=== PATIENT | male | born 1955 | race Caucasian/White ===

== ENCOUNTER 2016-12-23 12:56 | Outpatient (CLI) | payer MEDICAID | END 2016-12-23 12:57 | disposition home or self-care (01) | DX: B18.2 Chronic viral hepatitis C (principal) ==

== ENCOUNTER 2016-12-25 09:09 | Outpatient (CLI) | payer MEDICAID | END 2016-12-25 09:10 | disposition home or self-care (01) | DX: I10 Essential (primary) hypertension (principal) ==

== ENCOUNTER 2017-05-26 07:22 | Outpatient (CLI) | payer MEDICAID | END 2017-05-26 07:23 | disposition home or self-care (01) | LOC: LAB.F 07:22 | PROVIDERS: ATTEND Nurse Practitioner Family | DX: I10 Essential (primary) hypertension (principal) ==

== ENCOUNTER 2017-06-10 08:47 | Outpatient (CLI) | payer MEDICAID ==
[2017-06-10 19:25] LABS: CHOL/HDL RATIO 4.1 (<5.0); CHOLESTEROL 140 mg/dL; HDL CHOLESTEROL 34 mg/dL; LDL/HDL RATIO 2.6 (<3.6); TRIGLYCERIDES 89 mg/dL; VLDL CHOLESTEROL 18 mg/dL
[2017-06-10 19:34] LABS: BASOPHILS % (AUTO) 0.5 %; EOSINOPHILS # (AUTO) 0.2 10^3/uL (0.0-0.7); HCT - HEMATOCRIT 44.9 % (42.0-52.0); LYMPHOCYTES # (AUTO) 2.8 10^3/uL (1.5-3.5); LYMPHOCYTES % (AUTO) 46.9 %; MEAN CORPUSCULAR HEMOGLOBIN 30.7 pg (27.0-31.0); MEAN CORPUSCULAR HGB CONC 33.5 g/dL (32.0-36.0); MEAN CORPUSCULAR VOLUME 91.7 fL (80.0-94.0); MEAN PLATELET VOLUME 8.4 fL (7.4-11.4); MONOCYTES # (AUTO) 0.6 10^3/uL (0.0-1.0); MONOCYTES % (AUTO) 10.2 %; NEUTROPHILS # (AUTO) 2.3 10^3/uL (1.5-6.6); NEUTROPHILS % (AUTO) 38.4 %; NUCLEATED RED BLOOD CELLS AUTO 0.1 /100WBC; RED BLOOD COUNT 4.89 10^6/uL (4.70-6.10); RED CELL DISTRIBUTION WIDTH 13.6 % (12.0-15.0)
== END 2017-06-10 08:48 | disposition home or self-care (01) ==
LOC: LAB.F 08:47
PROVIDERS: ATTEND Nurse Practitioner Family
DX: I10 Essential (primary) hypertension (principal)
CPT/HCPCS: 36415; 80061; 84443; 85025; 86317; 86694; 86695; 86696; 86704; 86709; 86780; 86803; 87340; 87389; 87491; 87522; 87591

== ENCOUNTER 2017-06-13 13:15 | Outpatient (CLI) | payer MEDICAID ==
[2017-06-13 18:18] LABS: BILIRUBIN,TOTAL 0.3 mg/dL (0.2-1.0); CALCIUM 9.4 mg/dL (8.5-10.3); CREATININE 0.7 mg/dL (0.6-1.2); POTASSIUM 4.2 mmol/L (3.5-5.0); TOTAL PROTEIN 7.9 g/dL (6.7-8.2)
== END 2017-06-13 13:16 | disposition home or self-care (01) ==
LOC: LAB.F 13:15
PROVIDERS: ATTEND Nurse Practitioner Family
DX: I10 Essential (primary) hypertension (principal)
CPT/HCPCS: 36415; 80053

== ENCOUNTER 2017-09-15 13:30 | Outpatient (CLI) | payer MEDICAID ==
[2017-09-15 19:27] LABS: BILIRUBIN,TOTAL 0.4 mg/dL (0.2-1.0); CREATININE 0.9 mg/dL (0.6-1.2); POTASSIUM 3.5 mmol/L (3.5-5.0); TOTAL PROTEIN 7.4 g/dL (6.7-8.2)
[2017-09-18 18:01] LABS: TEST RESULT REPORT
== END 2017-09-15 13:31 | disposition home or self-care (01) ==
LOC: LAB.WCP 13:30
PROVIDERS: ATTEND Internal Medicine Gastroenterology
DX: B18.2 Chronic viral hepatitis C (principal)
CPT/HCPCS: 36415; 80053; 81599; 87521

== ENCOUNTER 2017-09-16 11:22 | Outpatient (CLI) | payer MEDICAID ==
[2017-09-16 19:07] LABS: HIVRAP NEG QC NEGATIVE (Negative); HIVRAP POS QC POSITIVE (Positive)
== END 2017-09-16 11:23 | disposition home or self-care (01) ==
LOC: LAB.F 11:22
PROVIDERS: ATTEND Internal Medicine
DX: Z76.89 Persons encountering health services in other specified circumstances (principal)
CPT/HCPCS: 36415; 86803; 87340; 87389

== ENCOUNTER 2017-10-13 10:00 | Outpatient (CLI) | payer MEDICAID ==
[2017-10-13 12:32] LABS: BASOPHILS % (AUTO) 0.6 %; EOSINOPHILS # (AUTO) 0.2 10^3/uL (0.0-0.7); EOSINOPHILS % (AUTO) 2.6 %; HCT - HEMATOCRIT 43.3 % (42.0-52.0); HGB - HEMOGLOBIN 14.7 g/dL (14.0-18.0); LYMPHOCYTES # (AUTO) 2.3 10^3/uL (1.5-3.5); MEAN CORPUSCULAR HEMOGLOBIN 30.8 pg (27.0-31.0); MEAN CORPUSCULAR HGB CONC 33.9 g/dL (32.0-36.0); MEAN CORPUSCULAR VOLUME 90.8 fL (80.0-94.0); MEAN PLATELET VOLUME 7.8 fL (7.4-11.4); MONOCYTES # (AUTO) 0.8 10^3/uL (0.0-1.0); MONOCYTES % (AUTO) 11.7 %; NEUTROPHILS # (AUTO) 3.2 10^3/uL (1.5-6.6); NEUTROPHILS % (AUTO) 50.1 %; NUCLEATED RED BLOOD CELLS AUTO 0.1 /100WBC; RED BLOOD COUNT 4.77 10^6/uL (4.70-6.10); RED CELL DISTRIBUTION WIDTH 13.6 % (12.0-15.0); UNCORRECTED WHITE BLOOD COUNT 6.5 x10^3/uL; WHITE BLOOD COUNT 6.5 x10^3/uL (4.8-10.8)
[2017-10-13 12:52] LABS: BILIRUBIN,TOTAL 0.7 mg/dL (0.2-1.0); CALCIUM 9.2 mg/dL (8.5-10.3); CREATININE 0.6 mg/dL (0.6-1.2); TOTAL PROTEIN 7.5 g/dL (6.7-8.2)
== END 2017-10-13 10:01 | disposition home or self-care (01) ==
LOC: LAB.WCP 10:00
PROVIDERS: ATTEND Internal Medicine Gastroenterology
DX: B18.2 Chronic viral hepatitis C (principal)
CPT/HCPCS: 36415; 80053; 85025; 86803

== ENCOUNTER 2018-05-05 05:28 | Emergency (ER) | payer MEDICAID, MEDICARE ==
--- NOTE | 2018-05-05 05:52 | ED Physician Documentation ---
History of Present Illness - Stated complaint Stated Complaint: HIGH BLOOD PRESSURE - Chief complaint Chief Complaint: Neuro - History obtained from History obtained from: Patient, Family - History of Present Illness Timing: Enter time (04:00), Today Improved by: no ameliorating factors Worsened by: no exacerbating factors - Additonal information Additional information: awoke 4 AM this morning with irregular palpitations, diaphoresis, nausea. He measured his blood pressure several times in succession, with high readings ( highest was 170s/100s). recently diagnosed with TIA at [place] last week. Started on Losartan last night (saw PMD yesterday, took first dose last night) Review of Systems Constitutional: reports: Sweats. denies: Fever Cardiac: reports: Chest pain / pressure (tightness), Palpitations. denies: Pedal edema Respiratory: denies: Dyspnea, Cough GI: reports: Nausea. denies: Abdominal Pain, Vomiting Musculoskeletal: denies: Back pain Neurologic: denies: Generalized weakness, Focal weakness, Numbness, Headache PD PAST MEDICAL HISTORY - Past Medical History Past Medical History: Yes Cardiovascular: Hypertension, High cholesterol Respiratory: None Neuro: None Endocrine/Autoimmune: None GI: None : None HEENT: None Psych: Anxiety Musculoskeletal: None Derm: None - Past Surgical History Past Surgical History: Yes HEENT: Tonsil/Adenoidectomy - Present Medications Home Medications: Ambulatory Orders Medication Instructions Recorded Confirmed Aspirin [Adult Aspirin] 81 mg PO DAILY 05/05/18 05/05/18 Losartan Potassium 100 mg PO DAILY 05/05/18 05/05/18 - Allergies Allergies/Adverse Reactions: Allergies Allergy/AdvReac Type Severity Reaction Status Date / Time No Known Drug Allergies Allergy Verified 05/05/18 05:38 - Social History Does the pt smoke?: Yes Smoking Status: Light tobacco smoker Does the pt drink ETOH?: Yes Does the pt have substance abuse?: Yes Substance Use and Type: Marijuana - Immunizations Immunizations are current?: Yes - POLST Patient has POLST: No PD ED PE NORMAL - Vitals Vital signs reviewed: Yes - General General: Alert and oriented X 3, No acute distress, Well developed/nourished - HEENT HEENT: Moist mucous membranes - Neck Neck: Supple, no meningeal sign - Cardiac Cardiac: RRR, No murmur, Other (occasional extra beats) - Respiratory Respiratory: No respiratory distress, Clear bilaterally - Abdomen Abdomen: Soft, Non tender - Derm Derm: Normal color, Warm and dry - Extremities Extremities: No edema Results - Vitals Vitals: Vital Signs - 24 hr 05/05/18 05/05/18 05/05/18 05:34 05:48 06:00 Temperature 36.4 C L Heart Rate 97 65 67 Respiratory 16 16 19 Rate Blood Pressure 159/81 H O2 Saturation 97 05/05/18 05/05/18 05/05/18 06:01 06:17 06:20 Temperature Heart Rate 71 65 Respiratory 18 18 18 Rate Blood Pressure 140/85 H O2 Saturation 98 96 05/05/18 05/05/18 05/05/18 06:21 06:37 07:35 Temperature Heart Rate 62 67 Respiratory 18 18 Rate Blood Pressure 147/91 H 140/73 H 142/84 H O2 Saturation 98 96 Oxygen O2 Source Room air - EKG (time done) No standard instances Rate: Rate (enter#) (69) Rhythm: NSR [place]: LAD, Anterior hemiblock Intervals: Normal DC QRS: Normal Ischemia: Normal ST segments Other comments: Other comments (PACs) - Labs Labs: Laboratory Tests 05/05/18 05/05/18 05/05/18 05:43 05:43 05:43 WBC 8.3 RBC 4.86 Hgb 15.1 Hct 44.7 MCV 92.1 MCH 31.0 MCHC 33.7 RDW 12.9 Plt Count 201 MPV 7.7 Neut # (Auto) 3.9 Lymph # (Auto) 3.0 [place] # (Auto) 1.0 Eos # (Auto) 0.3 Baso # (Auto) 0.1 Absolute Nucleated RBC 0.00 Nucleated RBC % 0.0 Sodium 138 Potassium 3.9 Chloride 104 Carbon Dioxide 26 Anion Gap 8.0 BUN 13 Creatinine 0.8 Estimated GFR (MDRD) 97 Glucose 140 H Calcium 9.3 Total Bilirubin 0.6 AST 21 ALT 18 Alkaline Phosphatase 61 Troponin I < 0.04 Total Protein 7.7 Albumin 3.9 Globulin 3.8 Albumin/Globulin Ratio 1.0 Lipase 36 PD MEDICAL DECISION MAKING - ED course Complexity details: reviewed results, re-evaluated patient, considered differential, d/w patient, d/w family ED course: nausea, chest tightness, and diaphoresis had resolved [employer]. He continued to have palpitations, and on telemetry was observed to have occasional/moderately frequent PACs, occasional PVCs. This was discussed at length and I instructed him to f/u with PMD - Sepsis Event Vital Signs: Vital Signs - 24 hr 05/05/18 05/05/18 05/05/18 05:34 05:48 06:00 Temperature 36.4 C L Heart Rate 97 65 67 Respiratory 16 16 19 Rate Blood Pressure 159/81 H O2 Saturation 97 05/05/18 05/05/18 05/05/18 06:01 06:17 06:20 Temperature Heart Rate 71 65 Respiratory 18 18 18 Rate Blood Pressure 140/85 H O2 Saturation 98 96 05/05/18 05/05/18 05/05/18 06:21 06:37 07:35 Temperature Heart Rate 62 67 Respiratory 18 18 Rate Blood Pressure 147/91 H 140/73 H 142/84 H O2 Saturation 98 96 Oxygen O2 Source Room air Departure - Departure Disposition: 01 Home, Self Care Clinical Impression: Palpitations, Chest pressure Condition: Good Instructions: ED Chest Pain Atypical Unkn Cause, ED Hypertension Conf Out Of Control, ED Palpitations Follow-Up: PAULINO GORDON MD [Primary Care Provider] - Discharge Date/Time: 05/05/18 07:35
[2018-05-05 05:57] LABS: BASOPHILS # (AUTO) 0.1 10^3/uL (0.0-0.1); BASOPHILS % (AUTO) 0.9 %; EOSINOPHILS # (AUTO) 0.3 10^3/uL (0.0-0.7); EOSINOPHILS % (AUTO) 3.8 %; HGB - HEMOGLOBIN 15.1 g/dL (14.0-18.0); LYMPHOCYTES % (AUTO) 36.6 %; MEAN CORPUSCULAR HGB CONC 33.7 g/dL (32.0-36.0); MEAN CORPUSCULAR VOLUME 92.1 fL (80.0-94.0); MEAN PLATELET VOLUME 7.7 fL (7.4-11.4); MONOCYTES % (AUTO) 11.6 %; NEUTROPHILS # (AUTO) 3.9 10^3/uL (1.5-6.6); NEUTROPHILS % (AUTO) 47.1 %; PLT - PLATELET COUNT 201 10^3/uL (130-450); RED BLOOD COUNT 4.86 10^6/uL (4.70-6.10); RED CELL DISTRIBUTION WIDTH 12.9 % (12.0-15.0); WHITE BLOOD COUNT 8.3 x10^3/uL (4.8-10.8)
[2018-05-05 06:14] LABS: ALBUMIN 3.9 g/dL (3.2-5.5); BILIRUBIN,TOTAL 0.6 mg/dL (0.2-1.0); CALCIUM 9.3 mg/dL (8.5-10.3); CREATININE 0.8 mg/dL (0.6-1.2); TOTAL PROTEIN 7.7 g/dL (6.7-8.2)
[2018-05-05 07:49] VITALS: BP 142/84
== END 2018-05-05 07:35 | disposition home or self-care (01) ==
LOC: ED 05:28
DX: R00.2 Palpitations (principal); R07.89 Other chest pain; I44.4 Left anterior fascicular block; I10 Essential (primary) hypertension; E78.00 Pure hypercholesterolemia, unspecified; F17.200 Nicotine dependence, unspecified, uncomplicated
CPT/HCPCS: 36415; 80053; 83690; 84484; 85025; 93005; 99284; 99285